=== PATIENT | female | born 1990 | race American Indian/Alaskan Native ===

== ENCOUNTER 2020-12-01 13:55 | Outpatient (CLI) | payer OTHER ==
--- NOTE | 2020-12-01 15:48 | XRay Report ---
CHEST 2 VIEWS INDICATION / CLINICAL INFORMATION: FATIGUE,ABNORMAL ELECTROCARDIOGRAM(ECG)(EKG). COMPARISON: None available. FINDINGS: SUPPORT DEVICES: None. HEART / MEDIASTINUM: No significant abnormality. Heart size and pulmonary vascularity are within norm al limits. LUNGS / PLEURA: No significant pulmonary or pleural abnormality. No pneumothorax. ADDITIONAL FINDINGS: No significant additional findings. IMPRESSION: 1. No significant abnormality. Signer Name: Meagan Perez MD Signed: 12/01/2020 3:44 PM Workstation Name: [id number]
== END 2020-12-01 13:56 | disposition home or self-care (01) ==
LOC: XRAY 13:55
PROVIDERS: ATTEND Internal Medicine
DX: R94.31 Abnormal electrocardiogram [ECG] [EKG] (principal)
CPT/HCPCS: 71046